=== PATIENT | female | born 1940 | race Caucasian/White ===

== ENCOUNTER 2017-04-23 12:35 | Inpatient (IN) | payer MEDICARE, OTHER ==
[~2017-04-23] VITALS: Ht 165.1 cm; Wt 61.0 kg
--- NOTE | ~2017-04-23 | HP ---
PATIENT'S NAME: CORNELIO COOMBS [facility] AGE: 76 Y [address] ROOM: [place] [address] LOCATION: [facility] ADMIT DATE: 04/23/2017 History & Physical DISCHARGE DATE: FAMILY PHYSICIAN: Roderick Golden MD ATTENDING PHYSICIAN: Roderick Golden DATE OF SERVICE: CHIEF COMPLAINT: Right hip and groin pain. HISTORY OF PRESENT ILLNESS: Ms. Coombs is a pleasant 76-year-old female, who was in her usual state of health when she went outside to take her dog for a walk. She notes that she put the dog onto the leash and brought the dog outside. She became tangled in the dog's leash and sustained a ground level fall onto her right side. At that time, she complained of immediate right hip and groin pain. Just unable to bear weight. There was pain with manipulation of the hip. She contacted Emergency Medical Services and was brought to the [facility]. She was seen and evaluated by the emergency room attending, where she was diagnosed with a right hip fracture. Aggravating factors include attempting to stand, movement of the hip, weightbearing or manipulation of the limb. Alleviating factors include rest, ice, elevation, and immobilization. She reports her pain currently as a 10/10. She reports it as dull alternating with achy pain. She reports that she is otherwise in good health. She denies any previous trauma or surgery to the right lower extremity. She is an independent ambulator at baseline. Currently, the patient denies any constitutional symptoms such as fever, chills, or night sweats. She also denies any dizziness, chest pain, shortness of breath, blurred vision, nausea, vomiting, or diarrhea. REVIEW OF SYSTEMS: A 10-point review of systems was otherwise mentioned above in the HPI. The rest of the review of systems was negative other than what is mentioned above. PAST MEDICAL HISTORY: Includes hypertension, hypercholesterolemia, and seasonal allergies. PAST SURGICAL HISTORY: None. MEDICATIONS: Include, 1. Lisinopril. 2. Carvedilol. PATIENT'S NAME: CORNELIO COOMBS [facility] AGE: 76 Y [address] ROOM: [place] [address] LOCATION: [facility] ADMIT DATE: 04/23/2017 History & Physical DISCHARGE DATE: FAMILY PHYSICIAN: Roderick Golden MD ATTENDING PHYSICIAN: Roderick Golden 3. Singulair. 4. Atorvastatin. 5. Multivitamin. ALLERGIES: INCLUDE IODINE AND CODEINE. SOCIAL HISTORY: The patient denies any alcohol, tobacco, or illicit drug use. She lives at home alone. She is an independent ambulator at baseline. FAMILY HISTORY: Includes hypertension and hypercholesterolemia in the maternal and paternal sides of the family. PHYSICAL EXAMINATION: VITAL SIGNS: Include a weight of 60.9 kilos, pulse was 62, respirations of 20, height 5 feet 4 inches, blood pressure 161/77, and SpO2 of 97% on room air. GENERAL: The patient is awake, alert, and oriented x3. She is in no acute distress. She is actively conversing with me at the bedside. HEENT: Normocephalic and atraumatic. Extraocular movements are intact. PERRLA. Moist mucous membranes. The oropharyngeal airway is clear. NECK: Supple. Trachea is in the midline. CARDIOVASCULAR: Regular rate and rhythm. CHEST: Normal symmetric respirations observed bilaterally. ABDOMEN: Soft, nontender, nondistended. PELVIS: Stable. MUSCULOSKELETAL: Right lower extremity: Focal examination of the patient's right lower extremity reveals it is short and externally rotated relative to the contralateral limb. Compartments of the thigh, leg, and foot are soft. There are palpable dorsalis pedal and posterior tibial pulses. There is +1 edema at the limb at baseline. She is able to actively dorsiflex and plantar flex the ankle without difficulty. There is good capillary refill in the toes. Sensation to the SPN, TPN, and tibial nerve distributions is intact to light touch. Positive log roll test. Left lower extremity: Focal examination of the patient's left lower extremity reveals she is grossly neurologically intact distally. Compartments of the thigh, leg, and foot are soft. Palpable dorsalis pedal and posterior tibial pulses noted. Good capillary refill in the toes. The patient is actively able to dorsiflex and plantar flex the ankle with good strength. The patient's sensation is intact to light touch to the SPN/TPN/tibial nerve distributions. IMAGING: Plain radiographs of the left hip reveal evidence of a right displaced PATIENT'S NAME: CORNELIO COOMBS [facility] [place] AGE: 76 Y [address] ROOM: [facility] [place], [place] [address] LOCATION: [facility] ADMIT DATE: 04/23/2017 History & Physical DISCHARGE DATE: FAMILY PHYSICIAN: Roderick Golden MD ATTENDING PHYSICIAN: Roderick Golden subtrochanteric fracture of the femur with comminution. A CT scan of the abdomen and pelvis revealed evidence of a comminuted and displaced subtrochanteric fracture of the right proximal femur. IMPRESSION: Right subtrochanteric fracture of the proximal femur. PLAN: I had a long discussion with the patient today regarding her right hip. She sustained a fracture. I am recommending a right femoral intramedullary nailing. I discussed the risks, benefits, and alternatives of pursuing surgical intervention with the patient in detail. I discussed the risks of anesthesia, infection, bleeding, and/or injury to neurovascular structures. The patient expressed understanding of this, informed consent was obtained, and the patient elected to proceed with surgery. I marked the patient's right lower extremity. We are currently waiting for Anesthesia to see and evaluate the patient. The patient's primary care doctor is Dr. Golden, and has been consulted to see and evaluate the patient for medical clearance. The patient will remain on bed rest for now. She will remain n.p.o. as well. We will place 2 g of Ancef on hold to the OR for surgery. I will continue to monitor the patient closely in the perioperative period. MD CHARLEE GARCIA/petra /[id number] D: T: 040 HISTORY & PHYSICAL
--- NOTE | ~2017-04-23 | OR ---
PATIENT'S NAME: CORNELIO COOMBS [facility] AGE: 76 Y [address] ROOM: [place] [address] LOCATION: [facility] ADMIT DATE: 04/23/2017 OR/Procedure Report DISCHARGE DATE: FAMILY PHYSICIAN: Roderick Golden MD ATTENDING PHYSICIAN: Roderick Golden SURGEON: Fortino Temple MD PRIVACY ATTORNEY: Cam Mercedes PA-C. DATE OF PROCEDURE: 04/23/2017 PREOPERATIVE DIAGNOSIS: Right comminuted and displaced intertrochanteric reverse obliquity subtrochanteric fracture with extension into the intertrochanteric region. POSTOPERATIVE DIAGNOSIS: Right comminuted and displaced intertrochanteric reverse obliquity subtrochanteric fracture with extension into the intertrochanteric region. PROCEDURE: 1. Right femoral intramedullary nailing. 2. Use of intraoperative fluoroscopy, less than 1 hour. ANESTHESIA: General endotracheal anesthesia. FLUIDS: See Anesthesia report. ESTIMATED BLOOD LOSS: 100 mL. TOURNIQUET: None. SPECIMEN: None. COMPLICATIONS: None. DISPOSITION: Stable in PACU. COUNTS: All counts correct. IMPLANTS: Synthes right femoral intramedullary nail with cephalomedullary screw and distal interlocking screw, 235 mm in length and 11 mm in width. INDICATIONS: Ms. Coombs is a pleasant 76-year-old female who underwent the noted procedures above. The risks, benefits, and alternatives of pursuing surgical intervention was discussed with the patient in detail. The patient elected to proceed with surgery as noted above. I marked the patient's right lower extremity indicating the correct surgical site. PATIENT'S NAME: CORNELIO COOMBS [facility] AGE: 76 Y [address] ROOM: [place] [address] LOCATION: [facility] ADMIT DATE: 04/23/2017 OR/Procedure Report DISCHARGE DATE: FAMILY PHYSICIAN: Roderick Golden MD ATTENDING PHYSICIAN: Roderick Golden Anesthesia was consulted for their perioperative evaluation on the patient. OPERATIVE REPORT IN DETAIL: The patient was brought from the holding area to the operative room. A time-out was performed. General endotracheal anesthesia administered. Antibiotics administered for perioperative prophylaxis. The patient placed on the [place] table. The right lower extremity was then placed into traction. A provisional closed reduction was undertaken. Intraoperative fluoroscopy was introduced to identify the fracture site The right lower extremity then prepped and draped in a sterile fashion. I turned my attention to the right hip. A final time-out was performed. I then made an incision at the proximal aspect of the right hip just approximately 3 fingerbreadths proximal to the tip of the greater trochanter. I introduced the K-wire at the level of the greater trochanter into the intramedullary canal. I then opened the intramedullary canal with an opening reamer. I introduced my intramedullary device. I confirmed position of the intramedullary device fluoroscopically. I then placed a pin up into the femoral head. I confirmed the position of my reduction. I then measured the pin, subsequently drilled for, and placed a lag screw. I compressed through the nail. I then released the gross traction from the limb to allow compression at the fracture site. I then subsequently turned my attention to the fluoroscopy. I confirmed in the AP and lateral projections that the fracture was well-reduced. I then subsequently made an incision at the level of the distal interlocking hole in the nail. I drilled for, measured, and placed a distal interlocking screw in the nail. Final fluoroscopic images revealed evidence of a successful reduction and placement of femoral intramedullary device. The wounds were then copiously irrigated with a normal sterile saline solution and closed in layers. Sterile Mepilex dressings were placed over the hip. The patient was then transferred from the operating table onto the hospital bed and extubated. She was brought to the recovery room in stable condition. There were no intraoperative complications noted. Of note, my PA, Cam Mercedes PA-C, played an integral role in the intraoperative care of this patient. This included preoperative positioning, PATIENT'S NAME: CORNELIO COOMBS [facility] AGE: 76 Y [address] ROOM: [place] [address] LOCATION: [facility] ADMIT DATE: 04/23/2017 OR/Procedure Report DISCHARGE DATE: FAMILY PHYSICIAN: Roderick Golden MD ATTENDING PHYSICIAN: Roderick Golden intraoperative expert retraction, and closing and dressing functions. IMPRESSION: The patient is status post the noted procedures above. PLAN: The patient will be toe-touch weightbearing on the right lower extremity. She will be encouraged to rest, ice, and elevate the leg. Postoperative pain control in the form of Percocet and IV morphine as needed for pain. DVT prophylaxis will be in the form of Lovenox. Dr. Golden is the Internal Medicine doctor of record and will continue to manage the patient's concomitant medical comorbidities. Physical Therapy and Occupational Therapy will consult for early ambulation and prevention of deconditioning. We will continue to follow the patient closely in the postoperative period. Postoperative antibiotics will be administered per routine. The patient will then be followed closely in this postoperative period. MD CHARLEE GARCIA/petra /[id number] d: 04/24/17 0049 t: 04/24/17 1042, OPERATIVE SUMMARY
--- NOTE | ~2017-04-23 | HP ---
PATIENT'S NAME: CORNELIO RAO [facility] AGE: 76 Y [address] ROOM: [id number] [place], [place] [address] LOCATION: [facility] ADMIT DATE: 04/23/2017 History & Physical DISCHARGE DATE: FAMILY PHYSICIAN: Roderick Golden MD ATTENDING PHYSICIAN: Roderick Golden DATE OF SERVICE: CHIEF COMPLAINT: Fall from a porch onto the concrete with subsequent fracture of her right femur. HISTORY OF PRESENT ILLNESS: The patient is an elderly 76-year-old female who is well-known to me. She is overall a very healthy lady. Her chronic health problems include hypertension, hyperlipidemia, osteoporosis, allergic rhinitis, and history of benign skin lesions in the past that have been removed. She was in her normal state of health and was taking her dog out on the leash to her backyard, which is fenced in. She was on the porch and got wrapped up in the leash and fell off the porch onto the concrete below. It was a couple of foot fall. She suffered a fracture to her right femur. She does have a known history of osteoporosis. She called for help and luckily the next-door neighbor had some carpet workers working on his place and one of them came over and checked her out and she was transported to [facility] for further evaluation. She was seen by Dr. Johnson who evaluated the patient and found her to have a right femur fracture. Dr. Temple has been consulted and he is going to work on repairing this. ALLERGIES: INCLUDE BAND-AIDS, CASHEWS, CODEINE, WOLOF WALNUTS, IODINE, METHYLPREDNISOLONE, OXYBUTYNIN, AND MANY OF THOSE WERE MORE SIDE EFFECTS. CURRENT MEDICATIONS: Include: 1. Alendronate 70 mg once daily, which we just started in October of 2016. 2. Carvedilol 12.5 mg twice daily. 3. Centrum Silver daily. 4. Fish oil 1000 mg daily. 5. Fluticasone nasal spray 2 squirts each nostril daily. 6. Lisinopril HCT 20/25 1 tablet daily. 7. Lotrisone 1%/0.05% topical cream as needed to involved areas. 8. Montelukast 10 mg daily. 9. Potassium gluconate 550 mg 1 tablet daily [id number]. 10. Pravastatin 40 mg daily. 11. Refresh Classic ophthalmic drops. PATIENT'S NAME: CORNELIO RAO [facility] AGE: 76 Y [address] ROOM: [id number] [place], [place] [address] LOCATION: [facility] ADMIT DATE: 04/23/2017 History & Physical DISCHARGE DATE: FAMILY PHYSICIAN: Roderick Golden MD ATTENDING PHYSICIAN: Roderick Golden 12. Vitamin D3 2000 units orally daily. PREVIOUS SURGERIES: Include appendectomy in 1978, cataract surgery in 07/2014 on the left eye, colonoscopy 10/25/[address] Canales that showed a serrated polyp in the ascending colon and recommended repeat in 5 years. Colporrhaphy 01/14/2006 anterior-posterior colporrhaphy and bilateral vaginal sacrospinous ligament suspension in conjunction with Dr. Camacho's urethrovaginal sling. She has had DEXA scans in the past. She did have a hysterectomy in 12/16/1978 along with an incidental appendectomy at that time. This was due to fibroids. She has had previous skin biopsies that showed seborrheic keratosis and she has had tonsillectomy back in 1943. SOCIAL HISTORY: The patient is not a drinker. 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 She usually drinks 3 to 4 cups of coffee per day. She had 1 year of college. Denies illicit drug use. She does exercise regularly normally doing elliptical 20 minutes daily. She enjoys gardening and that type of thing regularly. She does see Dr. Massey in the past for some right leg problems, but overall has been in good health. She is retired from [employer] and she had worked there for over 40 years as a flux core welder. She has never smoked. She does use her seat belts and she is and he from complications from diabetes. The patient has 2 sons and 4 grandchildren. REVIEW OF SYSTEMS: HEENT: Normal. LUNGS: Denies complaints. CARDIOVASCULAR: Negative. GI and : Negative. MUSCULOSKELETAL: Just the onset of this severe pain that occurred after she landed on the pavement. She denies any pain that triggered the fall so it really sounds like she did fall and land and caused the fracture. PHYSICAL EXAMINATION: VITAL SIGNS: She is afebrile. Vital signs are stable. HEENT: Normal. NECK: Supple. No adenopathy. LUNGS: Clear. HEART: Regular rate and rhythm. ABDOMEN: Benign. EXTREMITIES: She has significant swelling over her right quad, which I assume is just a big hematoma. Otherwise, she has good peripheral pulses distally and good sensation distally. PATIENT'S NAME: CORNELIO RAO [facility] AGE: 76 Y [address] ROOM: [address] [address] LOCATION: [facility] ADMIT DATE: 04/23/2017 History & Physical DISCHARGE DATE: FAMILY PHYSICIAN: Roderick Golden MD ATTENDING PHYSICIAN: Roderick Golden LABORATORY DATA: The patient's urinalysis was clear and just showed 50 of ketones. Chest x-ray showed increased perihilar interstitial markings, suggestive of interstitial edema, but her lungs are clear and she has no complaints. X-ray of the right hip shows a displaced inter-subtrochanteric right hip fracture. Her prealbumin was normal at 25. Her renal panel showed a sodium 132, potassium 4, chloride 101, CO2 25, glucose 111, BUN 10, creatinine 0.6, albumin 3.7, phosphorus 1.4, and eGFR is greater than 60. Her white count is 7.9, hemoglobin 13, hematocrit 37, and platelet count is 194. Her differential was essentially normal and her indices are normal. CT pelvis and right hip shows comminuted impacted intertrochanteric fracture of the right femur. ASSESSMENT: 1. Comminuted impacted intertrochanteric fracture of the right femur. 2. Fall from her porch onto the pavement. 3. Hypertension, well-controlled. 4. Hyperlipidemia, well-controlled, on her last visit. 5. History of osteoporosis for which she is on alendronate. 6. Plan for cataract surgery later in April. PLAN: The patient is overall a normal operative risk. She is cleared to proceed with surgery. I reviewed her EKG, which was also normal with chest x-ray, blood work, urine, and everything is a dull. I discussed the patient with Dr. Temple and he can proceed to surgery to fix this. We will follow the patient along. We will plan on rechecking her electrolytes and blood count tomorrow. NIAMD LEON CASTANO/petra /[id number]: [id number] T: [id number] HISTORY & PHYSICAL
--- NOTE | ~2017-04-23 | DS ---
PATIENT'S NAME: [facility] AGE: 76 Y [address] ROOM: [address] [place], [place] [address] LOCATION: G3N ADMIT DATE: 04/23/2017 Discharge Summary DISCHARGE DATE: 04/29/2017 FAMILY PHYSICIAN: Roderick Golden MD ATTENDING PHYSICIAN: oRderick Golden Dismissal was to a group home facility to [facility] for OT and PT for her right femur fracture. DISCHARGE DIAGNOSIS: Right femur fracture, postop day #6 open reduction and internal fixation. SECONDARY DIAGNOSES: 1. Significant postop anemia with transfusion of 4 units of blood. 2. Hypertension. 3. Hyperlipidemia. 4. Osteoporosis. FOLLOWUP: Follow up with Dr. Roderick Golden, Saturday, June 03, 2017, at 2:30 and Saturday, June 10, [address] Temple at 9:20 a.m. The patient is to be nonweightbearing to her right leg other than touchdown only. Therapies include PT and OT. Lab work is a repeat CBC on 05/07/2017. They are to change the Mirapex to her right hip and thigh every 7 days or as needed. She is going to be walking with a walker. We discontinued her Monterroso. We declined alcoholic beverages. Rehab potential is good. Discharge potential is excellent. Family and patient are aware of condition. DISCHARGE MEDICATIONS: 1. Calcium carbonate 600 mg b.i.d. 2. Centrum Silver vitamin one daily. 3. Fluticasone 2 squirts each nostril daily. 4. Singulair or montelukast 10 mg at bedtime. 5. Potassium citrate 540 mg p.o. daily. 6. Pravastatin 40 mg daily. 7. Percocet 5/325 1-2 tabs every 4 hours as needed for pain. 8. Lisinopril-HCTZ 20/25 mg one tab daily. 9. Carvedilol 12.5 mg p.o. b.i.d. 10. Prolia 60 mg subcutaneously every 6 months. 11. Refresh Plus eye drops t.i.d. p.r.n. 12. Vitamin D of 400 units daily. 13. Leona-3 fatty acids 300 mg daily. 14. Xarelto 10 mg one p.o. daily for 6 weeks. HISTORY OF PRESENT ILLNESS: The patient is a 76-year-old female, who is well known to me. She is overall extremely healthy other than history of PATIENT'S NAME: [facility] AGE: 76 Y [address] ROOM: [address] [place], [place] [address] LOCATION: [facility] ADMIT DATE: 04/23/2017 Discharge Summary DISCHARGE DATE: 04/29/2017 FAMILY PHYSICIAN: Roderick Golden MD ATTENDING PHYSICIAN: Roderick Golden hypertension, hyperlipidemia, osteoporosis, allergic rhinitis, and some benign skin lesions that have removed in the past. She is in her normal state of health and was taking her dog out to go to the backyard to the bathroom and had the dog on the leash. She got tangled in the leash, fell off the porch, and landed on concrete below onto her hip and suffered a fracture to her right femur. Luckily, there were some men working on the neighbor's house next door; she yelled, and they came and checked on her. An ambulance was called and she was transported here. Dr. Temple was consulted and has seen the patient and is planning on proceeding with surgery. Please see her history for further details. HOSPITAL COURSE: The patient was admitted to the hospital. Normal preop labs were done and everything looked good. She did have a significant hematoma forming in the right thigh. The patient did get some cefazolin perioperatively. We did order followup labs including a CBC and BMP for the morning. She had a right femoral intramedullary rodding by Dr. Temple. She overall tolerated the procedure well. She did well in the initial post anesthetic period. She then started to have some decrease in her blood pressure and they started some saline going. On 04/23/2017, at 2300 hours, she was getting very lightheaded and dizzy. They did a stat hemoglobin and gave her 500 mL saline bolus that was ordered by one of my partners, Dr. Pena. When I saw the patient on the 04/24/2017, at about 1:30 in the afternoon, they had continued to be battling low blood pressures and she was quite lightheaded. She had a fair amount of swelling in her right thigh at that time. Her hemoglobin was 9.7. With her symptoms, we did give her another saline bolus. I hold her carvedilol, lisinopril, and HCTZ. We did order stat EKG and cardiac enzymes and that all came back normal. Her hemoglobin later on with her symptoms did come back at 7.9, which was down from 9.7. We went ahead and transfused her 1 unit of blood at that time. Indication: Postop anemia with significant orthostatic symptoms. I think, she had a couple rapid responses called due to the low blood pressures and especially with any type of scanning. She had a repeat hemoglobin and that was quite low. She was given an additional 2 units of packed red cells. She had had a syncopal episode, had a markedly low systolic blood pressure and is quite lightheaded. Her hemoglobin after the first unit have been 7.6, which is why we went ahead and gave her 2 units of blood. The patient actually did fairly well from that point onward. We did have a Monterroso placed and eventually as she was improving, we started to discontinue the Monterroso. Over the next few days, she did tend to drift down and she got down to 7.6, was still having significant orthostatic type symptoms. We went ahead and repeated 1 more unit of blood and so that was a total of 4 units and we gave her Lasix afterwards. She actually did quite well. We did temporarily hold her Lovenox. Her repeat CBC the next day showed her hemoglobin to be back up to 8.5. Her vital signs were stable and she was feeling much better. We had been talking along the way that it would be best for her to go to a group home facility as she PATIENT'S NAME: [facility] AGE: 76 Y [address] ROOM: [address] [address] LOCATION: [facility] ADMIT DATE: 04/23/2017 Discharge Summary DISCHARGE DATE: 04/29/2017 FAMILY PHYSICIAN: Roderick Golden MD ATTENDING PHYSICIAN: Roderick Golden is going to need a lot of help. Care management had been working on that and had things set up for [facility]. On 04/29/2017, her blood count remained stable. She was ready to be dismissed and we did send her over to [facility]. CONDITION ON DISCHARGE: The patient's condition on discharge was good. MD LEON KIM/petra /[id number] d: 05/16/17 0022 t: 06/05/17 1116, DISCHARGE SUMMARY
--- NOTE | ~2017-04-23 | ER ---
PATIENT'S NAME: CORNELIO COOMBS [facility] AGE: 76 Y [address] ROOM: [place] [address] LOCATION: G3N ADMIT DATE: 04/23/2017 ER/Outpatient Report DISCHARGE DATE: FAMILY PHYSICIAN: Roderick Golden MD ATTENDING PHYSICIAN: Roderick Golden CHIEF COMPLAINT: Fall and right hip pain. HISTORY OF PRESENT ILLNESS: Ms. Coombs presents by ambulance for evaluation of right hip pain. She was out walking her dog earlier today when she states that she got herself tangled up in the leash. This caused her to fall. She landed on her right side. Denies striking her head and denies loss of consciousness. She denies any symptoms consistent with neurologic or cardiac syncope. She states she remembers the entire event. She was brought in by ambulance after having a binder placed out of concern for patient comfort. EMS did not report any pelvic instability. She remains with a relatively well controlled pain at this time. She denies any other symptoms at this time. She just rates a tenderful feeling in the right thigh region. PAST MEDICAL HISTORY: Documented on the record and reviewed by me. SOCIAL HISTORY: Documented on the record and reviewed by me. MEDICATIONS: Documented on the record and reviewed by me. ALLERGIES: DOCUMENTED ON THE RECORD AND REVIEWED BY ME. REVIEW OF SYSTEMS: All systems were reviewed and negative except as noted in the HPI. PHYSICAL EXAMINATION: VITAL SIGNS: Blood pressure 161/77, pulse 62, respiratory rate 20, temperature 98.1, SpO2 is 97% on room air. Pain is rated at 2/10. GENERAL: An age appropriate female, recumbent on the exam table in no obvious distress, in very mild pain. NEURO: The patient is awake and alert. She fires all muscles in the right lower extremity, but has significant pain with activation of the hip region. She is neurovascularly intact to the right lower extremity otherwise. HEENT: Normocephalic, atraumatic. No tenderness or hematomas appreciated. PATIENT'S NAME: CORNELIO COOMBS [facility] AGE: 76 Y [address] ROOM: [place] [address] LOCATION: N ADMIT DATE: 04/23/2017 ER/Outpatient Report DISCHARGE DATE: FAMILY PHYSICIAN: Roderick Golden MD ATTENDING PHYSICIAN: Roderick Golden Eyes are PERRL. Oropharynx is clear. NECK: Supple. Trachea is midline. Neck with full active and passive range of motion with no midline pain or tenderness. CHEST: The chest wall is nontender to palpation throughout. HEART: Regular rate and rhythm with no murmurs. LUNGS: Clear to auscultation bilaterally with no rhonchi, wheezes, or rales. ABDOMEN: Soft, nontender, and nondistended. No rebound or guarding. BACK: Normal to inspection and palpation. EXTREMITIES: Warm and well perfused. There is a slight fullness at the right proximal thigh. The extremity is neurovascularly intact. She is able to wiggle toes and activate the ankle and knee with minimal difficulty. Strength appears to be intact otherwise. Gentle rolling of the thigh does not produce significant amounts of pain, but it is uncomfortable and does exacerbate her discomfort. SKIN: Appears to be intact throughout. Skin without rashes. LABORATORY DATA AND X-RAYS: Chest x-ray with no obvious abnormalities. Pelvis x-ray reveals a right intertrochanteric fracture, multi-part. CT confirms. Radiology reviewed. CBC grossly unremarkable. CMS is pending. EKG is sinus rhythm, rate of 65 with otherwise normal intervals and axis. No obvious abnormalities. IMPRESSION: 1. Mechanical fall. 2. Right-sided multi-part intertrochanteric fracture with shortening. EMERGENCY DEPARTMENT COURSE: The patient was seen and evaluated as above. She was quickly excluded for any significant open-book or unstable pelvis trauma. She remained hemodynamically stable. Based on the amount of swelling, plain films and CT were obtained as above. The patient was seen in the ER by Dr. Temple, orthopedic surgeon. He would like to take her to the operating room today. Dr. Golden, the patient's primary care was contacted regarding this patient. He will see her today before the operation. He will admit her to the hospital. All questions were answered, and the patient was ultimately taken to the preoperative staging unit for surgical preparation. MD JENAE AYOUB/petra PATIENT'S NAME: CORNELIO COOMBS [facility] AGE: 76 Y [address] ROOM: [place] [address] LOCATION: [facility] ADMIT DATE: 04/23/2017 ER/Outpatient Report DISCHARGE DATE: FAMILY PHYSICIAN: Roderick Golden MD ATTENDING PHYSICIAN: Roderick Golden /[id number] d: 04/23/17 2339 t: 05/13/17 1654, OUTPATIENT REPORT
[2017-04-23 13:52] LABS: BASOPHIL % 0.5 %; EOSINOPHIL # 0.1 K/uL (0.0-0.5); EOSINOPHIL % 1.5 %; IMMATURE GRANULOCYTE % 0.4 %; LYMPHOCYTE # 1.6 K/uL (0.8-4.0); LYMPHOCYTE % 20.7 %; MCH 32.3 pg (27.0-34.0); MCHC 35.1 gm/dL (32.0-36.5); MCV 91.8 fl (83.0-98.0); MONOCYTE # 0.7 K/uL (0.0-1.0); MONOCYTE % 9.4 %; MPV 10.1 fl (9.4-12.4); NEUTROPHIL # (ANC) 5.3 K/uL (1.8-7.8); NEUTROPHIL % 67.5 %; NRBC % 0 /100WBC (0-0.00); PLATELET COUNT 194 K/uL (150-450); RBC 4.03 M/uL (3.50-5.50); RDW-CV 13.1 % (11.9-14.6); WBC 7.9 K/uL (4.0-11.0)
[2017-04-23 14:02] LABS: INR - (THERAPEUTIC) 0.95 (0.92-1.07); PTT 28 SECONDS (25-32)
[2017-04-23 14:12] LABS: ALBUMIN 3.7 gm/dL (3.5-5.0); BLOOD UREA NITROGEN 10 mg/dL (6-24); CALCIUM 8.7 mg/dL (8.5-10.5); CHLORIDE 101 mMol/L (96-110); CO2 25 mMol/L (22-32); CREATININE 0.6 mg/dL (0.5-1.1); ESTIMATED GFR (MDRD EQUATION) > 60; SODIUM 132 mMol/L (135-145)
[2017-04-23 14:14] LABS: PHOSPHORUS 1.4 mg/dL (2.5-4.9)
[2017-04-23 15:14] LABS: BILIRUBIN URINE NEGATIVE (NEGATIVE); BLOOD URINE NEGATIVE /UL (NEGATIVE); COLOR URINE YELLOW (YELLOW); GLUCOSE URINE NEGATIVE (NEGATIVE); KETONE URINE 50 mg/dL (NEGATIVE); LEUKOCYTES URINE NEGATIVE /UL (NEGATIVE); NITRITE URINE NEGATIVE (NEGATIVE); PROTEIN URINE NEGATIVE (NEGATIVE); SPEC GRAVITY URINE 1.005 (1.003-1.035); TURBIDITY URINE CLEAR (CLEAR); UROBILINOGEN URINE NORMAL (NORMAL)
[2017-04-23] MEDS ORDERED: SINGULAIR10 MG PO (15:56)
[2017-04-23] MEDS ORDERED: PRAVACHOL40 MG PO (15:57)
[2017-04-23] MEDS ORDERED: ZESTORETIC 20-1 EACH PO (15:57)
[2017-04-23] MEDS ORDERED: COREG12.5 MG PO (15:57)
[2017-04-23] MEDS ORDERED: REFRESH PLUS1 EACH OPHTH (15:59)
[2017-04-23] MEDS ORDERED: PROLIA60 MG/ML SUB-Q (15:59)
[2017-04-23] MEDS ORDERED: FLONASE 50 MCG/16 GM NOSE (16:00)
[2017-04-23] MEDS ORDERED: UROCIT K PO (16:00)
[2017-04-23] MEDS ORDERED: CALCIUM CARBON600 MG PO (16:01)
[2017-04-23] MEDS ORDERED: VITAMIN D-40400 UNIT PO (16:01)
[2017-04-23] MEDS ORDERED: CENTRUM SILVER1 TAB PO (16:01)
[2017-04-23] MEDS ORDERED: FISH OIL300 MG PO (16:02)
--- NOTE | 2017-04-23 19:53 | NUR ---
Patient is 76 yo female admitted this evening after falling earlier today when she got tangled in the dog leash, fell, fractured her right hip. Patient was brought in by ambulance to the Emergency room. went from there to [facility] and to surgery. Arrives to 3311 from PACU after her surgery to repair her right hip. patient is alert and oriented. says her hip is hurting a little bit but states she has a high pain tolerance. IV is infusing in right antecubital. Monterroso is patent w/yellow drainage. foot pumps are on bilat. pt donavan well. Patient's son present. Education is given as documented. patient and family deny questions at this time. call lightis within reach. patient denies needs at this time. report is given to KANDY Marks.
[2017-04-23 23:29] LABS: HEMOGLOBIN 10.6 g/dL (10.0-15.0)
[2017-04-24 05:20] LABS: BASOPHIL % 0.1 %; HEMATOCRIT 28.5 % (33.0-46.0); HEMOGLOBIN 9.7 g/dL (10.0-15.0); IMMATURE GRANULOCYTE % 0.5 %; LYMPHOCYTE # 0.7 K/uL (0.8-4.0); LYMPHOCYTE % 9.2 %; MCH 31.5 pg (27.0-34.0); MCV 92.5 fl (83.0-98.0); MONOCYTE # 0.7 K/uL (0.0-1.0); MONOCYTE % 9.5 %; NEUTROPHIL # (ANC) 5.9 K/uL (1.8-7.8); NEUTROPHIL % 80.7 %; NRBC % 0 /100WBC (0-0.00); PLATELET COUNT 157 K/uL (150-450); RBC 3.08 M/uL (3.50-5.50); RDW-CV 13.3 % (11.9-14.6); WBC 7.4 K/uL (4.0-11.0)
[2017-04-24 05:34] LABS: ANION GAP 9.9 (10.0-19.0); BLOOD UREA NITROGEN 9 mg/dL (6-24); CHLORIDE 103 mMol/L (96-110); CO2 25 mMol/L (22-32); CREATININE 0.6 mg/dL (0.5-1.1); ESTIMATED GFR (MDRD EQUATION) > 60; POTASSIUM 3.9 mMol/L (3.7-5.1); SODIUM 134 mMol/L (135-145)
[2017-04-24 05:37] LABS: CALCIUM 7.4 mg/dL (8.5-10.5)
--- NOTE | 2017-04-24 06:31 | NUR ---
Shift Summary: Patient came to the room from OR at 1910. Has denied having any pain all shift. Did give 1000mg Tylenol this morning around 0430 for anticipated pain. Attempted to get patient up at the bedside, but when she sat up she became dizzy and nauseated. B/P was 85/52. Patient given 500ml NS bolus and Hgb checked. Have kept IV fluids running due to poor PO intake. Patient has bledsoe cath with 600ml out. Did not remove bledsoe due to inability to get patient up at this time.
--- NOTE | 2017-04-24 10:00 | NUR ---
Introduced self/role to patient, along with Hedis Manager Traci. Patient plans to return home. She has a ramp and handicap shower due to the needs of her before he 12 years ago. She has talked to her son Roderick about his granddaughters coming to stay with her for awhile to assist with the little tasks around the house. They already come to see her almost daily. They are taking care of her dog and 2 cats now. She denied any barriers to getting home or at home. She reports her sister will also be coming down to assist her at some point. She denied the need for HHC. Added my name to her marker board, will continue to follow.
[2017-04-24 14:55] LABS: EOSINOPHIL % 0.1 %; HEMATOCRIT 22.8 % (33.0-46.0); HEMOGLOBIN 7.9 g/dL (10.0-15.0); IMMATURE GRANULOCYTE # 0.1 K/uL (0.0-0.3); IMMATURE GRANULOCYTE % 0.5 %; LYMPHOCYTE # 1.2 K/uL (0.8-4.0); LYMPHOCYTE % 10.7 %; MCH 32.6 pg (27.0-34.0); MCHC 34.6 gm/dL (32.0-36.5); MCV 94.2 fl (83.0-98.0); MONOCYTE # 1.3 K/uL (0.0-1.0); MONOCYTE % 12.3 %; MPV 10.6 fl (9.4-12.4); NEUTROPHIL # (ANC) 8.2 K/uL (1.8-7.8); NEUTROPHIL % 76.4 %; NRBC % 0 /100WBC (0-0.00); PLATELET COUNT 141 K/uL (150-450); RBC 2.42 M/uL (3.50-5.50); RDW-CV 13.6 % (11.9-14.6); WBC 10.7 K/uL (4.0-11.0)
[2017-04-24 15:08] LABS: ANION GAP 10.7 (10.0-19.0); CHLORIDE 103 mMol/L (96-110); CO2 24 mMol/L (22-32); CPK 188 IU/L (21-215); CREATININE 0.6 mg/dL (0.5-1.1); ESTIMATED GFR (MDRD EQUATION) > 60; POTASSIUM 3.7 mMol/L (3.7-5.1); SODIUM 134 mMol/L (135-145)
[2017-04-24 15:09] LABS: BLOOD UREA NITROGEN 15 mg/dL (6-24); CALCIUM 7.3 mg/dL (8.5-10.5)
--- NOTE | 2017-04-24 17:10 | NUR ---
Pt has been alert and oriented this shift. Dressings changed this morning by Cam ONOFRE. Pt CSM WNL. She got up this morning with assist. Had dizziness that subsided. Sat in chair all morning until around 1230 she felt like she had a spasm in hip and also started to feel lightheaded. When started to assist pt to bed, she became diaphoretic, dizzy, hyppotensive. Pt laid back in recliner and after about 20 minutes was feeling better. See VS Screen. Lowest BP was 79/54. Sats 99% R/A but O2 put on. IV NS rate increased and at 1245 BP 90/49 and pt states faint feeling was gone. Dr Golden here and order for fluid bolus 500 ml, lab work and unit of blood. At 1535, attempted to assist pt to bed and when sat up in chair, had sudden lightheadedness, diaphoresis, pt upper body rigid and didn't follow commands. Rapid Response called. Pt BP at that time was 129/55, HR 79. O2 applied at 2 Liters. Pt began to respond to commands when laid back in chair. Assisted to bed per lift at 1600. Orders per Dr Ballard who responded to BUDGET REPORT CLERK. Unit of blood started at 1700. Hg had been 9.7 this morning and dropped to 7.6. BP remains around 97/51. Denies pain. Occasional light spasm Rt hip. Pt bledsoe removed around 1230 and no void since. had 650 ml in bledsoe bag. Pt has denied hip pain all shift and has only had tylenol 1000 mg x1 this shift.
--- NOTE | 2017-04-24 18:00 | NUR ---
Pt blood infusing well. Ancef dose will need to be given when blood finished. Pt now denies any dizziness or lightheadedness. Color isn't as pale. Has pain rt hip rated at 2. Pt had recent tylenol. Quarter spots of blood on both mepilex dressings. Edema Rt hip. Visitors here.
[2017-04-24 21:32] LABS: CPK 242 IU/L (21-215)
[2017-04-25 03:08] LABS: HEMATOCRIT 21.5 % (33.0-46.0)
[2017-04-25 03:10] LABS: HEMOGLOBIN 7.6 g/dL (10.0-15.0)
[2017-04-25 03:27] LABS: CPK 181 IU/L (21-215)
--- NOTE | 2017-04-25 03:40 | NUR ---
PT AOx3. BP's this shift 105-118/47-56. Pt denies dizziness/lightheadedness in bed. Dressing marked w/ little drainage outside the montserrat this morning. Pt had a 500 cc NS bolus due to bladder can of only 191 at 2141 and no void. Bledsoe was placed at 0135 due to pt not able to void. 425 out of bledsoe. Pt denies chest pain and SOB. Serial cardiac enzymes performed. Pain well controlled w/ repositioning and percocet. CSM's intact. Pt remains on 2 L per NC.
--- NOTE | 2017-04-25 10:10 | NUR ---
Followed up with patient regarding a change in discharge plans. She will consider nursing homes for a short stay. I can call to see who has openings and she will talk to her son annelise. 1120 [facility] have a bed Saturday, [facility] should have one Saturday or Saturday, [facility] Saturday or Saturday, [facility] didn't answer and Sheri who was covering as admission coordinator didn't know. 1530 Update patient. Wrote option on her marker board so she can talk to Roderick about. Will see her first thing in the morning.
--- NOTE | 2017-04-25 17:10 | NUR ---
Significant Event: Pt is a/o. Cooperative with cares. O2 2L. Has old drainage to 2 mepilex, no increase. Using IS. Was lightheaded for PT this am with dangling. Is now getting 2 UPC. 2nd one is infusing. Had 40 mg IV lasix between units. To have CBC 4 HR after blood done. TTWB R). BP is better. Care management working on placement. Follow up:
[2017-04-25 23:40] LABS: BASOPHIL % 0.3 %; EOSINOPHIL # 0.2 K/uL (0.0-0.5); EOSINOPHIL % 1.7 %; HEMATOCRIT 24.1 % (33.0-46.0); HEMOGLOBIN 8.7 g/dL (10.0-15.0); IMMATURE GRANULOCYTE % 0.3 %; LYMPHOCYTE % 22.6 %; MCH 32.6 pg (27.0-34.0); MCHC 36.1 gm/dL (32.0-36.5); MCV 90.3 fl (83.0-98.0); MONOCYTE # 1.4 K/uL (0.0-1.0); MONOCYTE % 15.3 %; MPV 10.3 fl (9.4-12.4); NEUTROPHIL # (ANC) 5.3 K/uL (1.8-7.8); NEUTROPHIL % 59.8 %; NRBC % 0 /100WBC (0-0.00); RBC 2.67 M/uL (3.50-5.50); RDW-CV 14.6 % (11.9-14.6); WBC 8.9 K/uL (4.0-11.0)
[2017-04-25 23:41] LABS: PLATELET COUNT 97 K/uL (150-450)
--- NOTE | 2017-04-26 03:49 | NUR ---
Pt AOx3. 2nd unit of blood finished. Pt's bp flat was 139/62; seated 115/53. Pt sat for approx. 5 minutes and started to get dizzy, pt laid back in bed and bp was 109/63 supine. Shadowing on dressing marked at beginning of shift. Pt on room air. CSM intact. Pt had 3300 out of bledsoe. Pain controlled with percocet.
[2017-04-26 05:48] LABS: BASOPHIL % 0.5 %; EOSINOPHIL # 0.2 K/uL (0.0-0.5); EOSINOPHIL % 2.3 %; HEMOGLOBIN 8.5 g/dL (10.0-15.0); IMMATURE GRANULOCYTE % 0.3 %; LYMPHOCYTE # 1.3 K/uL (0.8-4.0); LYMPHOCYTE % 16.8 %; MCH 32.2 pg (27.0-34.0); MCHC 35.4 gm/dL (32.0-36.5); MCV 90.9 fl (83.0-98.0); MONOCYTE % 13.3 %; MPV 9.8 fl (9.4-12.4); NEUTROPHIL # (ANC) 5.1 K/uL (1.8-7.8); NEUTROPHIL % 66.8 %; NRBC % 0 /100WBC (0-0.00); PLATELET COUNT 104 K/uL (150-450); RBC 2.64 M/uL (3.50-5.50); RDW-CV 15.1 % (11.9-14.6); WBC 7.7 K/uL (4.0-11.0)
[2017-04-26 06:09] LABS: ANION GAP 7.7 (10.0-19.0); BLOOD UREA NITROGEN 10 mg/dL (6-24); CHLORIDE 103 mMol/L (96-110); CO2 28 mMol/L (22-32); CREATININE 0.5 mg/dL (0.5-1.1); ESTIMATED GFR (MDRD EQUATION) > 60; POTASSIUM 3.7 mMol/L (3.7-5.1); SODIUM 135 mMol/L (135-145)
[2017-04-26 06:12] LABS: CALCIUM 7.1 mg/dL (8.5-10.5)
--- NOTE | 2017-04-26 08:10 | NUR ---
Followed up with patient. [facility] first choice. Per Charge Nurse Phyllis, discharge to be planned for Saturday. 0820 Called [facility] and left message, faxed referral. Started a packet - PASRR in it for [facility] - pending their acceptance. 1130 Left a message for Sharon if they got referral? 1155 Sharon called and will assess at 1500 today. 1305 Updated patient and Aleyda, patient's nurse.
--- NOTE | 2017-04-26 16:39 | NUR ---
Significant Event:Tylenol ES 2 tab x2 last at 1613. Up to chair/commode with walker and 1 assist. Mepilex dressing x2 to rt hip. CSM WNL. Monterroso removed this am and voiding without difficulty Follow up:
--- NOTE | 2017-04-27 00:23 | NUR ---
Significant Event: A/O X 3. SAT UP IN RECLINER CHAIR, 2 ASSIST TO COMMODE, VOIDED 300ML URINE. RETURN TO BED. PAIN WITH MOVMENT TO RT DCV-DNYCW-NPPS AREA. ICE BAGS TO RT THIGH-KNEE AREA. DENIES NUMBNESS OR TINLGING TO LOWER EXTREMITIES. BILATERAL FOOT PUMPS TO FEET. UP WITH WALKER-GAITBELT 2 ASSIST. HAD PERCOCET TAB ONE AT 2035 FOR RT HIP-THIGH SPASMS RATING 4, STILL AT 4 LATER REPOSITIONED AND NEW ICE BAGS REAPPLIED AND WARM BLANKETS. AT 2300 SLEEPING. 2330 VOIDED 100ML ON BEDPAN. MEPILEX DRSGS X 2 TO RT HIP, AREA ECCHYMOTIC. INCENTIVE SPIROMETER USAGE [id number]. IV SALINE LOCK INTACT. Follow up:
--- NOTE | 2017-04-27 04:43 | NUR ---
Significant Event: Low grade temp of 99.4. Mepilex dressing to X2 site L) hip. Distal dressing dry and intact, but has a large amount of bloody drainage. Ecchymosis and edema present to L) hip. Ice bags placed to L) hip and thigh. Up to bedside commode with 2 asisst, gait belt and walker. Denies pain after activity. Gave percocet last at 0418. Follow up:
[2017-04-27 04:44] LABS: BASOPHIL % 0.3 %; EOSINOPHIL # 0.2 K/uL (0.0-0.5); EOSINOPHIL % 2.2 %; IMMATURE GRANULOCYTE % 0.4 %; LYMPHOCYTE # 1.5 K/uL (0.8-4.0); LYMPHOCYTE % 19.9 %; MCH 32.2 pg (27.0-34.0); MCHC 34.5 gm/dL (32.0-36.5); MCV 93.2 fl (83.0-98.0); MONOCYTE % 12.6 %; MPV 9.8 fl (9.4-12.4); NEUTROPHIL % 64.6 %; NRBC % 0 /100WBC (0-0.00); PLATELET COUNT 120 K/uL (150-450); RBC 2.36 M/uL (3.50-5.50); WBC 7.7 K/uL (4.0-11.0)
[2017-04-27 04:45] LABS: HEMOGLOBIN 7.6 g/dL (10.0-15.0)
[2017-04-27 05:02] LABS: ANION GAP 9.8 (10.0-19.0); BLOOD UREA NITROGEN 11 mg/dL (6-24); CHLORIDE 102 mMol/L (96-110); CO2 27 mMol/L (22-32); CREATININE 0.4 mg/dL (0.5-1.1); ESTIMATED GFR (MDRD EQUATION) > 60; POTASSIUM 3.8 mMol/L (3.7-5.1); SODIUM 135 mMol/L (135-145)
[2017-04-27 05:03] LABS: CALCIUM 7.3 mg/dL (8.5-10.5)
--- NOTE | 2017-04-27 10:15 | NUR ---
A-SCREENED D/T LOS S/P R)HIP FX HT: 65 IN. WT: 60.98 KG. BMI: 22.3 LABS: NA 135, K+ 3.8, GLU 110, BUN 11, CLINICAL BIOCHEMIST 0.4, ALB 3.7, PREALB 25.0 MEDS: MVI, VIT D, OSCAL, PRN BOWEL MEDS, ZOFRAN, PERCOCET, MORPHINE DIET RX: REGULAR. PO INTAKE 75-100% EST NUTR NEEDS: 2281-6178 KCALS (28-32 KCAL/KG) 61-73 GM PROTEIN (1.0-1.2 GM/KG) 1 ML FLUID/KCAL D-NOT AT NUTRITION RISK; NO NUTRITION DX IDENTIFIED I-CONTINUE W/CURRENT DIET RX M/E-WILL ASSIST NEEDED
--- NOTE | 2017-04-27 17:46 | NUR ---
Significant Event: UP TO COMMODE AND RECLINER WITH 1 ASSIST, TOLERATES FAIR. HGB 7.6, STARTED ON 1 UNIT BLOOD AT 1700. HAD PERCOCET 1 TAB AT 1200 DENIED NEED FOR PAIN PILL WHEN OFFERED THIS AFTERNOON, LOVENOX WAS HELD PER ORDER...MEPILEX DRSG INTACT WITH OLD DRAINAGE, HIP/LEG EDEMATOUS WITH SOME ECCYMOSIS.CSM GOOD TO RIGHT LEG, ICE ON... Follow up:
[2017-04-28 04:31] LABS: BASOPHIL % 0.3 %; EOSINOPHIL # 0.2 K/uL (0.0-0.5); EOSINOPHIL % 3.3 %; HEMATOCRIT 24.7 % (33.0-46.0); HEMOGLOBIN 8.5 g/dL (10.0-15.0); IMMATURE GRANULOCYTE % 0.3 %; LYMPHOCYTE # 1.8 K/uL (0.8-4.0); MCH 32.2 pg (27.0-34.0); MCHC 34.4 gm/dL (32.0-36.5); MCV 93.6 fl (83.0-98.0); MONOCYTE # 0.9 K/uL (0.0-1.0); MONOCYTE % 13.1 %; MPV 9.5 fl (9.4-12.4); NEUTROPHIL # (ANC) 3.8 K/uL (1.8-7.8); NRBC % 0 /100WBC (0-0.00); RBC 2.64 M/uL (3.50-5.50); RDW-CV 15.1 % (11.9-14.6); WBC 6.7 K/uL (4.0-11.0)
--- NOTE | 2017-04-28 04:31 | NUR ---
Patient alert and oriented x3, very pleasant and cooprative, transfers fair one to two assist with walker a gaitbelt, had one unit of blood this shift finished at 1945 was given a dose of lasix after, has been voiding well, top dressing to right hip clean dry and intact, lower dressing is saturated and had a small amount of bloody drainage leak from the dressing, VSS, csm with in normal limits, has rested well tonight and pain has been under control
[2017-04-28 04:33] LABS: PLATELET COUNT 149 K/uL (150-450)
[2017-04-28 04:59] LABS: ANION GAP 10.1 (10.0-19.0); BLOOD UREA NITROGEN 11 mg/dL (6-24); CALCIUM 7.6 mg/dL (8.5-10.5); CHLORIDE 102 mMol/L (96-110); CO2 28 mMol/L (22-32); CREATININE 0.4 mg/dL (0.5-1.1); ESTIMATED GFR (MDRD EQUATION) > 60; POTASSIUM 4.1 mMol/L (3.7-5.1); SODIUM 136 mMol/L (135-145)
--- NOTE | 2017-04-28 18:47 | NUR ---
Significant Event: TRANSFER WITH 1 ASSIST EXCEPT FOR GETTING INTO BED, MAY NEED 2, CSM GOOD TO RIGHT LEG, LEG EDEMATOUS/ECCHYMOTIC. ICE ON. HAD PERCOET FOR PAIN, DENIED NEEDING PAIN MED THIS AFTERNOON. HAS STRESS INC. OFTEN TRIES TO HURRY TO COMMODE. NO BM, GAVE MILK OF MAG AT 1700...PLANING FOR TRANSFER TO [facility] ON SATURDAY.... Follow up:
--- NOTE | 2017-04-29 03:37 | NUR ---
Significant Event:pt alert and orientedx4.pleasant with staff and cares. up with 1-2 assist walker gb.does well with trasnfers. inscion to right upper leg continues to be bruised and swollen. ice to extremity during night. prn pain pill at hs. showever given at hs, dressing saturated so chagned following shower. pt uses bedside commode wiht no complications noted. contient of bowel and bladder. takes medicatin whole with no complication noted. saline lock to right wrist area. retaped during shift. uses call light approp. Follow up: [facility] today at 10:30am
[2017-04-29 05:37] LABS: HEMATOCRIT 24.7 % (33.0-46.0); HEMOGLOBIN 8.2 g/dL (10.0-15.0)
--- NOTE | 2017-04-29 09:30 | NUR ---
RECEIVED REFERRAL THAT PATIENT CAN BE DISCHARGE TO [facility] TODAY. I SPOKE TO SABINO AT [facility] SHE INFORMS MET THAT THEY WILL BE HERE AT 1030 TO [place]. FAXED DISCHARGE ORDERS TO SABINO.
--- NOTE | 2017-04-29 10:07 | NUR ---
PATIENT TRANSFERRING TO [facility] THIS AM. CSM ADEQUATE. MEPILEX DRESSINGS D/I TO RIGHT HIP. BRUISE/EDEMA TO RIGHT HIP AREA. TTWB RIGHT LEG. ABLE TO AMBULATE SHORT DISTANCE WITH WALKER AND 1 TO 2 ASSIST. PERCOCET FOR PAIN LAST AT 0400. HAD SOME HYPOTENSION POSTOP, DID HAVE 4 UNITS OF BLOOD DURING HOSPITALIZATION. MOM LAST EVENING. SMALL BM YESTERDAY. HGB THIS AM 8.2. DENIES DIZZINESS/SYNCOPE. BP THIS AM 127/74. VOIDING PER [facility].
--- NOTE | 2017-04-29 10:07 | NUR ---
SPOKE TO PATIENT SHE IS IN AGREEMENT TO GOING TO [facility] TODAY. I NOTIFIED HER SON LUIS PER HER REQUEST AND HE TELLS ME THAT HE WAS AWARE OF THIS. HE WILL PLAN ON SEEING HER AT [facility].
--- NOTE | 2017-04-29 11:05 | NUR ---
patient transferred to [facility], belongings sent with patient and advanced quality engineer. patient in w/c to snf van.
== END 2017-04-29 10:45 | DRG 481 ==
LOC: GACC 12:35 → G3N 14:06
PROVIDERS: Emergency Medicine; Family Medicine; Internal Medicine; ADMIT Obstetrics & Gynecology Obstetrics
PROC: 0QH606Z Insertion of Intramedullary Internal Fixation Device into Right Upper Femur, Open Approach (ICD-10-PCS; principal; 2017-04-23)
DX: S72.001A Fracture of unspecified part of neck of right femur, initial encounter for closed fracture (principal); D62 Acute posthemorrhagic anemia; I10 Essential (primary) hypertension; E78.5 Hyperlipidemia, unspecified; I95.1 Orthostatic hypotension; M81.0 Age-related osteoporosis without current pathological fracture; W18.30XA Fall on same level, unspecified, initial encounter
CPT/HCPCS: C1713; J0690; J1650; J1940; J2405; J7030; J7050; P9016

== ENCOUNTER → 2017-04-23 | Outpatient (CLI) | payer MEDICARE, OTHER ==
[~2017-04-23] MED LIST: CALCIUM CARBON600 MG PO; CENTRUM SILVER1 TAB PO; COREG12.5 MG PO; FISH OIL300 MG PO; FLONASE 50 MCG/16 GM NOSE; PRAVACHOL40 MG PO; PROLIA60 MG/ML SUB-Q; REFRESH PLUS1 EACH OPHTH; SINGULAIR10 MG PO; UROCIT K PO; VITAMIN D-40400 UNIT PO; ZESTORETIC 20-1 EACH PO
== END | disposition disaster alternative care site (69) ==
LOC: GAMB 12:16
DX: S79.911A Unspecified injury of right hip, initial encounter (principal); M79.89 Other specified soft tissue disorders; R20.0 Anesthesia of skin
CPT/HCPCS: A0425; A0429